=== PATIENT | male | born 1980 | race Caucasian/White ===

== ENCOUNTER 2021-03-25 07:13 | Emergency (ER) | payer OTHER ==
[2021-03-25 08:15] LABS: HEMOGLOBIN 16.3 gm/dl (14.0-17.5); RED BLOOD COUNT 5.06 M/UL (4.20-5.50); WHITE BLOOD COUNT 9.9 K/UL (4.5-11.0)
[2021-03-25 08:25] LABS: BUN/CREATININE RATIO 9 (0-10)
[2021-03-25] MEDS ORDERED: CYCLOBENZAPRINE10 MG PO (09:42)
== END 2021-03-25 09:57 | disposition home or self-care (01) ==
LOC: ER1 07:13
PROVIDERS: Student in an Organized Health Care Education/Training Program
DX: M51.36 Other intervertebral disc degeneration, lumbar region (principal); Z88.1 Allergy status to other antibiotic agents; F17.210 Nicotine dependence, cigarettes, uncomplicated
CPT/HCPCS: 72131; 80053; 81001; 85025; 96374; 96375; 99284; J1885; J2270; J2405

== ENCOUNTER 2021-06-27 19:02 | Emergency (ER) | payer SELFPAY ==
[~2021-06-27 19:02] MED LIST: CYCLOBENZAPRINE10 MG PO
== END 2021-06-27 20:05 | disposition home or self-care (01) ==
LOC: ER1 19:02
DX: M25.561 Pain in right knee (principal); F17.210 Nicotine dependence, cigarettes, uncomplicated; Z88.1 Allergy status to other antibiotic agents
CPT/HCPCS: 73564; 99283

== ENCOUNTER → 2022-07-14 | Outpatient (CLI) | payer OTHER ==
[2022-07-14 13:46] LABS: BUN/CREATININE RATIO 17 (0-10)
== END ==
LOC: US 09:30
PROVIDERS: Internal Medicine Nephrology
DX: N17.9 Acute kidney failure, unspecified (principal)
CPT/HCPCS: 36415; 80053; 82550; 82570; 84156